=== PATIENT | male | born 1990 | race Caucasian/White ===

== ENCOUNTER 2022-06-03 18:55 | Emergency (ER) | payer SELFPAY ==
[2022-06-03 18:58] VITALS: BP 142/91; PULSE 88; RESP 17; TEMP 36.6; O2SAT 97; BMI 30.2
--- NOTE | 2022-06-03 19:17 | XRR_ITS ---
PROCEDURE INFORMATION: Exam: XR Left Finger(s) Exam date and time: 06/03/2022 7:46 PM Age: 32 years old Clinical indication: Injury or trauma; Other: Angle saw; Laceration; Left; Index finger; Additional info: Laceration with angle glass grinder, attn index over ip joint TECHNIQUE: Imaging protocol: Radiologic exam of the left fingers. Views: Minimum 2 views. COMPARISON: No relevant prior studies available. FINDINGS: Bones/joints: Exam was performed with attention to the left 2nd or index finger. No fracture or dislocation is seen. Osseous structures and joint spaces appear unremarkable. No cortical irregularity or bone destruction. Soft tissues: No abnormal soft tissue calcification or radiopaque soft tissue foreign body. XR/XR finger LT min 2V [id number] IMPRESSION: No fracture or acute osseous abnormality.
[2022-06-03] MEDS: tetanus-dipt-pertussis 0.5 mL SDV IM (19:44)
[2022-06-03] MEDS: lidocaine 1% INJ 10 mL (per mL) 5 ML INTRADERMA (20:23)
--- NOTE | 2022-06-03 20:45 | ED_ITS ---
HPI - Wound/Laceration General: Chief Complaint: Wound/Laceration Stated Complaint: left hand lac Time Seen by Provider: 06/03/22 19:11 Source: patient Mode of arrival: ambulatory Limitations: no limitations History of Present Illness: Patient presents emergency department today accompanied by significant other for evaluation treatment of injury sustained to his left index finger. Patient states that he is currently building a metal shop building and, while using his angle tool and cutter grinder to try and do some framing, accidentally impacted the dorsal aspect of his left second MCP joint. There was quite a bit of bleeding but, bleeding has been controlled with direct pressure. He is unsure of his last tetanus immunization. Review of Systems General: Reports: 10 or more systems reviewed and unremarkable except in HPI and below Musc: Reports: joint pain and limited range of motion Skin/Breast: Reports: new lesions (Laceration to posterior left second MCP joint) Physical Exam Const: COMMON NORMALS: no acute distress, patient oriented x3 and alert HENMT: COMMON NORMALS: normocephalic, atraumatic and hearing grossly normal bilaterally HEAD & SCALP: normocephalic and atraumatic Eye: COMMON NORMALS: Equal, round and reactive pupils present, EOMs intact bilaterally and conjunctivae normal CONJUNCTIVA: Yes conjunctivae normal PUPIL: Yes Equal, round and reactive pupils present Neck/C-Spine: COMMON NORMALS: full ROM and no JVD Lymph: LYMPHATIC: no lymphadenopathy noted Resp: COMMON NORMALS: normal respiratory effort, No retractions and No use of accessory muscles Cardio: COMMON NORMALS: no JVD and regular rate RATE: regular rate Extremity: NARRATIVE EXTREMITY EXAM: Patient still has preserved flexion extension of the MCP joint, PIP joint, and DIP joint of the left second finger. Patient has connective tissue and tendon visible within the wound but, no signs of any lacerations or trauma. Neuro: COMMON NORMALS: patient oriented x3 SENSORIUM/ORIENTATION: Yes alert Psych: COMMON NORMALS: mental status grossly normal, Normal thought process present, cooperative and normal affect THOUGHT PROCESS: Normal thought process present Skin: COMMON NORMALS: no rashes or lesions noted and turgor normal GENERAL SKIN EXAM: no rashes or lesions noted and turgor normal OTHER: Patient has a linear laceration running across the dorsal aspect of the left second MCP joint. It is approximately 1-1/2 cm in length. It has approximately 7 mm of wound edge separation. No active bleeding. It is noticeably contaminated. Procedures Laceration Laceration 1: Site: hand (Left second finger) Side (If applicable): left Size (cm): 1.5 Description: linear and contaminated Depth: simple, single layer and involves tendon Local Anesthetic: lidocaine 1% Amount of anesthesia used (mL): 4 Pre-repair: wound explored, irrigated extensively, deep structures intact and extensive debridement Skin layer closed with: nylon Size (cm): 4-0 Number of sutures: 5 Technique: simple, interrupted Course Vital Signs: Vital signs: Vital Signs Temperature 97.9 F 06/03/22 18:58 Pulse Rate 88 06/03/22 18:58 Respiratory Rate 17 06/03/22 18:58 Blood Pressure 142/91 06/03/22 18:58 Pulse Oximetry 97 06/03/22 18:58 Oxygen Delivery Me thod 06/03/22 18:58 MDM - Wound/Laceration Medical Decision Making Patient presented to the emergency department today with wound over the left second MCP joint. Due to the depth and concerns for contamination, we did obtain an x-ray which showed no signs of any bony abnormality though there are some radiolucent foreign bodies within the soft tissue. Patient's wound was anesthetized and thoroughly cleaned using iodine. Vigorous scrubbing and removal of foreign bodies with both pickups, Q-tips, and gauze were used. Patient's wound was repaired using 4-0 nylon sutures for total of 5 count. Good wound edge approximation remain. However, given it being over the MCP joint, did bandage the wound and apply a finger guard to prevent flexion of this joint. Patient's tetanus immunization was updated. A first round of antibiotics was provided here in the emergency department with the rest given to the patient to have filled at his pharmacy first thing in the morning and continued until it is completed. Referral to orthopedic/hand was initiated on his behalf for follow- up for wound check and to assure full return of mobility to the finger after healing. Patient was given wound care instructions, suture care instructions, and strict return precautions for return for any acute concerns of worsening or onset of infection. Patient verbalized understanding and agreement to treat plan. Differential Diagnosis Likely laceration, abscess, abrasion and avulsion of skin Lab Data Radiology Impressions Finger X-Ray 06/03/22 19:17 IMPRESSION: No fracture or acute osseous abnormality. Discharge Plan Discharge Patient Disposition: Home Clinical Impression: Laceration of finger of left hand Condition: Stable Prescriptions: New doxycycline hyclate 100 mg tablet 100 mg PO BID 10 Days Qty: 20 0RF Discharge Orders: Discharge ED (Routine); Ordered 06/03/22 Ordered By: Kami Arteaga Discharge Diet: Usual diet Discharge Activity: Limit activity as instructed Patient Instructions: Care For Your Stitches (ED), Laceration (ED) Activity Restrictions/Additional Instructions: X-ray showed some small foreign bodies in the soft tissue which, we vigorously irrigated and cleaned here in the emergency department prior to repair of your wound. While the cut was very deep and we could see your connective tissues, does not appear that any of these have been damaged preventing you from having mobility of the finger. Still, we need to immobilize your finger until your sutures are removed in an effort to help keep the sutures from pulling through the wound and reopening of the wound edges. The sutures you have in place are nonabsorbable's and need to be removed by your primary care office, urgent care, or the emergency department in approximately 8 to 10 days. You need to wash the wound at least once if not twice a day with warm water and mild soap. You need to apply clean bandaging over the wound with each cleaning. We have provided you a finger guard to wear at all times. We have updated your tetanus immunization today and, because of the depth of your injury have also put you on a prophylactic course of antibiotics. I have initiated a follow-up appointment with orthopedic/hand specialty for follow-up to make sure that as you are healing, you are retaining mobility and achieve full return of mobility to your finger after your wound has healed. If for any reason the wound suddenly becomes swollen, red, develops a red streak up into the hand, or has a thick yellow or green drainage you need to be seen and reevaluated immediately. Coding Level of Care Code ED Tube Room Cashier for Morris Rider
[2022-06-03] MEDS: doxycycline 100 mg Tablet PO (20:56)
[2022-06-03 20:57] VITALS: PULSE 91; RESP 18; O2SAT 98
--- NOTE | 2022-06-05 09:35 | DCPLANNER ---
Addendum entered by Delicia Amin 06/06/22 08:13: condominium association manager received the following message from the ortho clinic regarding follow up appointment: attempt made to contact patient - left vm and mailed letter to call our clinic to schedule w/ dr silva Original Note: condominium association manager had message to schedule a follow up appointment for patient with ortho. condominium association manager sent patients information to the front office staff at ortho. Patients information will be reviewed. Clinic will call patient with appointment information.
--- NOTE | 2022-06-14 13:03 | DCPLANNER ---
Addendum entered by Delicia Amin 06/14/22 13:10: Patient called family caseworker back stated that he does not have insurance. beef cattle farm manager gave patient the phone number to [facility], where he can apply for a sliding scale. Original Note: beef cattle farm manager called patient due to no primary care physician - no answer at this time
== END 2022-06-03 21:00 | disposition home or self-care (01) ==
PROVIDERS: Emergency Provider Physician Assistant
DX: S61.211A Laceration without foreign body of left index finger without damage to nail, initial encounter (principal); Z23 Encounter for immunization; W31.2XXA Contact with powered woodworking and forming machines, initial encounter
CPT/HCPCS: 12041; 73140; 90471; 90715; 99283

== ENCOUNTER → 2023-05-21 07:48 | Outpatient (BNVA) | payer BC, SELFPAY | PROVIDERS: PCP Clinical Nurse Specialist Adult Health; Visit Provider Clinical Nurse Specialist Adult Health | DX: Z00.00 Encounter for general adult medical examination without abnormal findings (principal) | CPT/HCPCS: 80053; 80061; 82306; 82607; 85025 ==

== ENCOUNTER 2023-11-23 20:56 | Emergency (ER) | payer BC, SELFPAY ==
[2023-11-23 21:19] VITALS: BP 122/75; PULSE 78; RESP 16; TEMP 36.6; O2SAT 96; BMI 29.5
[2023-11-23] MEDS: acetaminophen 500 mg Tablet 1000 MG PO (22:12)
[2023-11-23] MEDS: sulfamethoxazole-trimeth DS 160-800 mg Tablet 1 TAB PO (22:12)
[2023-11-23 22:24] VITALS: BP 143/94; PULSE 95; RESP 16; O2SAT 99
--- NOTE | 2023-11-23 23:29 | W.ED.WOUNDLC ---
HPI - Wound/Laceration General: Chief Complaint: Wound/Laceration Stated Complaint: Bite on left foot can not bear weight Time Seen by Provider: 11/23/23 21:56 Source: patient Mode of arrival: ambulatory Limitations: no limitations History of Present Illness: Patient is a 33-year-old male presenting to the emergency department complaining of lesion to left anterior ankle onset past few days. He states that he thinks it is a bite, however has been made worse by wearing boots and abrasive clothing. States that the lesion has been draining purulent material, denies any fever, nausea vomiting, or other symptoms at this time. States he has been applying Neosporin, has not been keeping it dry. Onset (ago): day(s) Extremity Location: Left: ankle Associated symptoms: Denies chills, fever(s), nausea or vomiting Related Data Previous Rx's Medication Instructions Recorded prednisone 20 mg tablet 20 mg PO DAILY #5 tabs 07/02/23 sulfamethoxazole 800 1 tab PO DAILY 14 days #14 tabs 11/23/23 mg-trimethoprim 160 mg tablet (Bactrim DS) Allergies Allergy/AdvReac Type Severity Reaction Status Date / Time amoxicillin Allergy Severe throat and Verified 11/23/23 21:22 mouth swelling Review of Systems General: Reports: 10 or more systems reviewed and unremarkable except in HPI and below Const: Denies: fever(s) or chills Card: Denies: chest pain Resp: Denies: dyspnea GI: Denies: abdominal pain, nausea, vomiting or diarrhea Musc: Denies: extremity pain or joint pain Skin/Breast: Reports: skin pain, skin tenderness and new lesions; Denies: rash Neuro: Denies: headache(s) PFSH ED PFSH: Medical History ADD (attention deficit disorder) Surgical History No pertinent past surgical history Family History Other ADHD (attention deficit hyperactivity disorder) Cancer Diabetes Denies family history of Clotting disorder Heart disease Anesthesia complication Bleeding disorder Stroke Social History Smoking and tobacco/nicotine status: current every day tobacco/nicotine user smokeless tobacco Smokeless tobacco user: snuff Alcohol intake: current Alcohol intake frequency: holidays/special occasions only Substance/Drug Use: never Marital status: Life Partner Marital status details: partner has kids Highest education level completed: 12th Grade, No Diploma Physical Exam Const: COMMON NORMALS: no acute distress, average body habitus, patient oriented x3, no limitations, healthy appearing, alert and well nourished HENMT: COMMON NORMALS: normocephalic and atraumatic HEAD & SCALP: normocephalic and atraumatic Neck/C-Spine: COMMON NORMALS: full ROM, no lymphadenopathy, supple and no meningeal signs Resp: COMMON NORMALS: normal respiratory effort, No use of accessory muscles and clear to auscultation bilaterally AUSCULTATION: clear to auscultation bilaterally Cardio: COMMON NORMALS: regular rate and regular rhythm RATE: regular rate RHYTHM: regular rhythm Extremity: COMMON NORMALS: full ROM and capillary refill normal Neuro: COMMON NORMALS: patient oriented x3 SENSORIUM/ORIENTATION: Yes alert MENINGEAL SIGNS: Yes no meningeal signs Skin: COMMON NORMALS: no wounds and turgor normal NARRATIVE SKIN EXAM: Circumferential lesion to left anterior ankle with surrounding erythema and central purulent drainage. Area is tender to the touch. No palpable fluctuance or significant induration. GENERAL SKIN EXAM: turgor normal Course Vital Signs: Vital signs: Vital Signs Temperature 97.9 F 11/23/23 21:19 Pulse Rate 95 11/23/23 22:24 Respiratory Rate 16 11/23/23 22:24 Blood Pressure 143/94 11/23/23 22:24 Pulse Oximetry 99 11/23/23 22:24 Oxygen Delivery Me thod Room Air 11/23/23 21:19 MDM - Wound/Laceration Medical Decision Making Patient with clinical appearance of a cellulitic infection, currently draining purulent material. Unknown what could have caused this, though it does favor a spider bite and made worse by abrasive clothing. Will treat with Bactrim and proper wound care discussed with the patient. Encouraged to take Tylenol ibuprofen for pain and apply ice for added relief. Return precautions were given such that if he has any systemic signs of illness he will return for reevaluation. Also he requested some crutches as he states weightbearing was too painful for him. No radiology studies performed this visit Discharge Plan Discharge Patient Disposition: Home Clinical Impression: Cellulitis of foot, left Condition: Stable Prescriptions: New Bactrim DS 800-160 mg tablet 1 tab PO DAILY 14 Days Qty: 14 0RF No Action prednisone 20 mg tablet 20 mg PO DAILY Qty: 5 0RF Discharge Orders: Discharge ED (Routine); Ordered 11/23/23 Ordered By: Luiz Echevarria Referrals: Leighton Rubio HYDROCHLORIC MANUFACTURING SUPERVISOR [Primary Care Provider] - Discharge Diet: Usual diet Discharge Activity: Limit activity as instructed Patient Instructions: Cellulitis (ED) Activity Restrictions/Additional Instructions: Bactrim as prescribed. Avoid any abrasive shoes or clothing. Keep lesion dry at all times as discussed. Alternate Tylenol and ibuprofen for any pain. Please return with any fevers, nausea or vomiting, or other concerning signs of illness. Otherwise follow-up with primary care as needed. Coding Level of Care Code ED Rpg Programmer for Morris Rider
== END 2023-11-23 22:23 | disposition home or self-care (01) ==
PROVIDERS: Emergency Provider Physician Assistant; PCP Clinical Nurse Specialist Adult Health
DX: L03.116 Cellulitis of left lower limb (principal); F17.220 Nicotine dependence, chewing tobacco, uncomplicated
CPT/HCPCS: 99283; E0114

== ENCOUNTER → 2024-11-13 08:51 | Outpatient (BNVA) | payer BC, SELFPAY | PROVIDERS: PCP Family Medicine; Visit Provider Family Medicine | DX: Z13.6 Encounter for screening for cardiovascular disorders (principal) | CPT/HCPCS: 80053; 80061; 82306; 84439; 84443; 85025 ==